=== PATIENT | male | born 1960 | race Caucasian/White ===

== ENCOUNTER 2018-05-10 01:19 | Inpatient (IN) ==
[2018-05-10 04:48] LABS: Basophils % 0.2 % (0.0-0.8); Eosinophils % 0.1 % (0.00-10.9); Hematocrit 47.4 VOL% (42.0-52.0); Hemoglobin 16.2 GM/DL (14.0-18.0); Immature Granulocytes % 0.4 %; Immature Granulocytes Absolute 0.05 #; Lymphocytes # 0.9 10*3/uL (1.4-4.0); Lymphocytes % 7.4 % (21.2-54.2); Mean Corpuscular HGB Conc 34.2 GM/DL (32-36); Mean Corpuscular Hemoglobin 30 PG (27-34); Mean Corpuscular Volume 87.8 FL (87-102); Mean Platelet Volume 9.5 FL (9.6-12.0); Monocytes # 1.1 10*3/uL (0.11-0.8); Monocytes % 9.2 % (1.7-12.7); Neutrophils # 9.5 10*3/uL (1.4-7.4); Neutrophils % 82.7 % (38.7-73.9); Platelet Count 245 T/CUMM (130-400); Red Cell Distribution Width 14.5 % (9.3-17.3); White Blood Count 11.5 T/CUMM (4-12)
[2018-05-10 05:17] LABS: Bilirubin,Total 0.7 MG/DL (0.2-1.0); Calcium 8.9 MG/DL (8.5-10.1); Osmolality,Calculated 272.8 MOS/KG (273-304); Potassium 4.1 MMOL/L (3.5-5.1); Total Protein 8.1 G/DL (6.4-8.3)
[2018-05-10 05:18] LABS: Troponin I Only 0.912 NG/ML (0.00-0.045)
[2018-05-10] MEDS ORDERED: MORPHINE 4 MG/1 ML VIAL IV PRN (05:29)
[2018-05-10] MEDS ORDERED: PROMETHAZINE 25 MG/1 ML VIAL IM PRN (05:29)
[2018-05-10] MEDS ORDERED: ONDANSETRON 4 MG/2 ML VIAL IV PRN (05:29)
[2018-05-10] MEDS ORDERED: ACETAMINOPHEN 325 MG TABLET PO PRN (05:29)
[2018-05-10] MEDS ORDERED: NITROGLYCERIN SL 0.4 MG TABLET SL PRN (05:31)
[2018-05-10 06:00] LABS: Risk Ratio 8.31; Thyroid Stimulating Hormone 35.6 uIU/ml (0.358-3.74)
[2018-05-10] MEDS: LEVOTHYROXINE 100 MCG VIAL IV SCH (07:35)
[2018-05-10] MEDS: CARVEDILOL 6.25 MG TABLET PO SCH ×2 (09:23→21:32)
[2018-05-10] MEDS: LISINOPRIL 10 MG TABLET PO SCH (10:06)
[2018-05-10] MEDS: ASPIRIN EC 81 MG TABLET PO SCH ×2 (10:07→12:42)
[2018-05-10] MEDS: ROSUVASTATIN 20 MG TABLET PO SCH (10:08)
[2018-05-10] MEDS: DOCUSATE SODIUM 100 MG CAPSULE PO SCH ×2 (10:08→21:32)
[2018-05-10] MEDS: CLOPIDOGREL 75 MG TABLET PO SCH ×2 (10:09→12:42)
[2018-05-10] MEDS: PANTOPRAZOLE 40 MG TABLET PO SCH ×2 (10:10→12:42)
[2018-05-10] MEDS ORDERED: diphenhydrAMINE CAP 25 MG CAPSULE PO ONE (12:37)
[2018-05-10] MEDS ORDERED: DIAZEPAM 5 MG TABLET PO ONE (12:37)
[2018-05-10] MEDS ORDERED: POTASSIUM CHLORIDE RIDER 10 MEQ in PREMIX 1 EACH IV PRN (12:37)
[2018-05-10] MEDS ORDERED: MAGNESIUM SULF RIDER 2 GM in PREMIX 1 EACH IV PRN (12:37)
[2018-05-10] MEDS: ENOXAPARIN 100 MG/ML SYRINGE SUBCUT SCH (12:42)
[2018-05-11] MEDS: ENOXAPARIN 100 MG/ML SYRINGE SUBCUT SCH (00:11)
[2018-05-11 04:59] LABS: Basophils % 0.3 % (0.0-0.8); Eosinophils # 0.1 10*3/uL (0.0-0.87); Hematocrit 47.9 VOL% (42.0-52.0); Hemoglobin 16.2 GM/DL (14.0-18.0); Immature Granulocytes % 0.5 %; Immature Granulocytes Absolute 0.03 #; Lymphocytes % 15.5 % (21.2-54.2); Mean Corpuscular HGB Conc 33.8 GM/DL (32-36); Mean Corpuscular Hemoglobin 30 PG (27-34); Mean Corpuscular Volume 89.7 FL (87-102); Mean Platelet Volume 9.9 FL (9.6-12.0); Monocytes % 15.2 % (1.7-12.7); Neutrophils # 4.4 10*3/uL (1.4-7.4); Neutrophils % 66.5 % (38.7-73.9); Platelet Count 229 T/CUMM (130-400); Red Blood Count 5.34 MC/CUMM (3.8-5.5); Red Cell Distribution Width 14.7 % (9.3-17.3); White Blood Count 6.7 T/CUMM (4-12)
[2018-05-11 05:22] LABS: Calcium 8.7 MG/DL (8.5-10.1); Osmolality,Calculated 275.7 MOS/KG (273-304); Potassium 3.7 MMOL/L (3.5-5.1)
[2018-05-11] MEDS: LISINOPRIL 10 MG TABLET PO SCH (05:58)
[2018-05-11] MEDS: CLOPIDOGREL 75 MG TABLET PO SCH (05:58)
[2018-05-11] MEDS: ASPIRIN EC 81 MG TABLET PO SCH ×2 (05:58→09:51)
[2018-05-11] MEDS ORDERED: DIAZEPAM 5 MG TABLET PO ONE (06:00)
[2018-05-11] MEDS ORDERED: diphenhydrAMINE CAP 25 MG CAPSULE PO ONE (06:00)
[2018-05-11] MEDS: LEVOTHYROXINE 100 MCG VIAL IV SCH (06:07)
[2018-05-11] MEDS ORDERED: HYDROmorphone 2 MG/1 ML VIAL ONE (06:34)
[2018-05-11] MEDS ORDERED: MIDAZOLAM 2 MG/2 ML VIAL ONE (06:35)
[2018-05-11] MEDS ORDERED: TICAGRELOR 90 MG TABLET PO ONE (07:22)
[2018-05-11] MEDS ORDERED: ZALEPLON 5 MG CAPSULE PO PRN (07:25)
[2018-05-11] MEDS ORDERED: NITROGLYCERIN 2% OINT 1 INCH/GM PACK TOP ONE (07:25)
[2018-05-11] MEDS ORDERED: NITROGLYCERIN SL 0.4 MG TABLET SL ONE (07:25)
[2018-05-11] MEDS ORDERED: LIDOCAINE 1% 20 ML VIAL ONE (07:27)
[2018-05-11] MEDS ORDERED: LABETALOL 100 MG/20 ML VIAL IV ONE (07:30)
[2018-05-11] MEDS ORDERED: SODIUM CHLORIDE 0.45% 1,000 ML IV SCH (07:30)
[2018-05-11] MEDS: SODIUM CHLORIDE 0.9% 1,000 ML IV SCH ×4 (09:31→22:02)
[2018-05-11] MEDS: ROSUVASTATIN 20 MG TABLET PO SCH (09:50)
[2018-05-11] MEDS: CARVEDILOL 6.25 MG TABLET PO SCH ×2 (09:51→22:00)
[2018-05-11] MEDS: DOCUSATE SODIUM 100 MG CAPSULE PO SCH ×2 (09:51→22:00)
[2018-05-11] MEDS: PANTOPRAZOLE 40 MG TABLET PO SCH (09:51)
[2018-05-11] MEDS: TICAGRELOR 90 MG TABLET PO SCH ×2 (09:51→22:00)
[2018-05-11] MEDS: CILOSTAZOL 50 MG TABLET PO SCH ×2 (09:51→22:00)
[2018-05-12] MEDS: LEVOTHYROXINE 100 MCG VIAL IV SCH ×2 (06:37→06:42)
[2018-05-12] MEDS: ROSUVASTATIN 20 MG TABLET PO SCH (09:10)
[2018-05-12] MEDS: CILOSTAZOL 50 MG TABLET PO SCH (09:10)
[2018-05-12] MEDS: TICAGRELOR 90 MG TABLET PO SCH (09:10)
[2018-05-12] MEDS: ASPIRIN EC 81 MG TABLET PO SCH (09:11)
[2018-05-12] MEDS: CARVEDILOL 6.25 MG TABLET PO SCH (09:11)
[2018-05-12] MEDS: DOCUSATE SODIUM 100 MG CAPSULE PO SCH (09:11)
[2018-05-12] MEDS: PANTOPRAZOLE 40 MG TABLET PO SCH (09:11)
[2018-05-12] MEDS: SODIUM CHLORIDE 0.9% 1,000 ML IV SCH ×2 (11:22→13:57)
[2018-05-12 12:01] VITALS: BP 156/88
== END 2018-05-12 17:00 | disposition home or self-care (01) | DRG 281 ==
LOC: N.3E 02:28 → N.TELES 11:35
PROVIDERS: ADMIT Internal Medicine; ATTEND Internal Medicine